=== PATIENT | female | born 1995 | race Caucasian/White ===

== ENCOUNTER 2021-12-15 07:37 | Emergency (ER) | payer OTHER ==
[~2021-12-15] VITALS: Ht 170.2 cm; Wt 81.6 kg
[2021-12-15 07:58] VITALS: BP 142/79
--- NOTE | 2021-12-15 07:58 | NUR ---
BIBS C/O SORE THROAT, BODY ACHES, RIGHT EAR ACHE, HEADACHE STARTED LAST WED TESTED COVID- ON WEDNESDAY, UNVACCINATED
--- NOTE | 2021-12-15 08:07 | NUR ---
SEEN BY CARLOS GARIBAY
--- NOTE | 2021-12-15 08:19 | NUR ---
COVID TEST COLLECTED AND SENT
--- NOTE | 2021-12-15 08:28 | NUR ---
RAPID STREP TEST COLLECTED AND SENT
== END 2021-12-15 08:31 | disposition home or self-care (01) ==
LOC: ER 07:37
DX: B34.9 Viral infection, unspecified (principal); J02.8 Acute pharyngitis due to other specified organisms; Z20.822 Contact with and (suspected) exposure to COVID-19; Z86.16 Personal history of COVID-19
CPT/HCPCS: 87070; 87880; 99283; C9803; U0003; 86403-TC